=== PATIENT | male | born 1980 | race African-American/Black ===

== ENCOUNTER 2020-03-28 02:25 | Emergency (ER) | payer MEDICARE, MEDICAID ==
[~2020-03-28] VITALS: Ht 180.3 cm; Wt 96.0 kg
[2020-03-28] MEDS ORDERED: ACETAMINOPHEN 325MG TABLET PO ONE (03:45)
[2020-03-28] MEDS ORDERED: KETOROLAC 60MG/2ML VIAL IM ONE (03:45)
[2020-03-28 03:54] VITALS: BP 113/74
[2020-03-28 04:06] LABS: BASOPHILS % 0.3 % (0.0-2.0); EOSINOPHILS % 0.5 % (0.0-5.0); HEMATOCRIT. 39.6 % (42.0-52.0); HEMOGLOBIN. 13.2 g/dL (14.0-18.0); LYMPHOCYTES % 32.1 % (20.0-50.0); MEAN CORPUSCULAR HEMOGLOBIN 29.7 pg (28.0-32.0); MEAN CORPUSCULAR VOLUME 89.2 fL (80.0-94.0); MEAN PLATELET VOLUME 9.1 fl (7.4-10.4); MONOCYTES % 11.8 % (2.0-8.0); NEUTROPHILS % 55.3 % (40.0-76.0); PLATELET 199 x1000/uL (130-400); RED BLOOD CELL COUNT 4.44 mill/uL (4.7-6.1); RED CELL DISTRIBUTION WIDTH 14.4 % (11.6-14.6)
[2020-03-28 04:07] LABS: CHLORIDE 106 mEq/L (98-107)
[2020-03-28 04:11] LABS: PROTHROMBIN TIME 10.5 sec (9.6-11.0)
== END 2020-03-28 06:37 | disposition home or self-care (01) ==
LOC: ER 02:25
DX: M79.652 Pain in left thigh (principal); M77.8 Other enthesopathies, not elsewhere classified; E11.9 Type 2 diabetes mellitus without complications; I10 Essential (primary) hypertension
CPT/HCPCS: 36415; 73502; 80053; 85025; 85610; 93005; 96372; 99285; J1885